=== PATIENT | female | born 1995 ===

== ENCOUNTER 2021-05-28 14:45 | Emergency (ER) | payer SELFPAY ==
--- NOTE | 2021-05-28 15:58 | Emergency Department Report ---
ED Female HPI - General Chief complaint: Vaginal Bleeding Stated complaint: VAGINAL BLEEDING Source: patient, family Mode of arrival: Ambulatory Limitations: Language Barrier - History of Present Illness Initial comments: 44 y/o female to the ED 3 para 2 complaining of vaginal bleeding. LMP :Mar. Patient stated that she noticed this morning light bright vaginal bleeding. Patient states that she is 8 weeks after taking a home test. She has an appointment on Sunday to see [facility] SUPPORT EXECUTIVE. Patient complained of abdominal cramping 8 out of 10. Denies any fatigue fever ,nausea .or vomiting. No acute distress noted .No ill appearance noted. MD Complaint: vaginal bleeding -: This morning Severity scale (0 -10): 8 Quality: cramping Consistency: intermittent Worsens with: none Are you Now?: Yes Last Menstrual Period: 03/29/21 EDC: 01/03/22 Associated Symptoms: vaginal bleeding, abdominal pain - Related Data Sexually active: Yes : 3 Para: 2 A: 0 Home Medications Medication Instructions Recorded Confirmed Last Taken No Known Home Medications [No 05/28/21 05/28/21 Unknown Reported Home Medications] Allergies Allergy/AdvReac Type Severity Reaction Status Date / Time No Known Allergies Allergy Verified 05/28/21 17:11 ED Review of Systems ROS: Stated complaint: VAGINAL BLEEDING Other details as noted in HPI ED Past Medical Hx - Medications Home Medications: Home Medications Medication Instructions Recorded Confirmed Last Taken Type No Known Home Medications [No 05/28/21 05/28/21 Unknown History Reported Home Medications] ED Physical Exam - General Limitations: Language Barrier ED Course Vital Signs 05/28/21 05/28/21 05/28/21 15:14 17:09 17:10 Temperature 98.0 F 98.9 F Pulse Rate 63 71 Respiratory 16 20 Rate Blood Pressure 115/77 Blood Pressure 117/69 [Right] O2 Sat by Pulse 100 99 99 Oximetry ED Medical Decision Making - Lab Data Result diagrams: 05/28/21 15:44 05/28/21 15:44 - Radiology Data Radiology results: image reviewed - Medical Decision Making 44 y/o female to the ED 3 para 2 complaining of vaginal bleeding. LMP :Mar. Patient stated that she noticed this morning light bright vaginal bleeding. Patient states that she is 8 weeks after taking a home test. She has an appointment on Sunday to see CUSTOMER SUPPORT EXECUTIVE. Patient comp lained of abdominal cramping 8 out of 10. Denies any fatigue fever ,nausea .or vomiting. No acute distress noted .No ill appearance noted Patient not patient measuring 5 weeks heart rate 91. Not correlating with patient estimated 8-week. Explained to patient the importance of follow-up appointment. hCG [place] [address]365. Patient to follow-up with C[facility] SUPPORT EXECUTIVE on Sunday (48 hour) to have hCG level redrawn. discussed plan of care with patient and verbalized understanding with group controller used . Discharge instruction given in [place]. - Differential Diagnosis Normal , ectopic , spontaneous miscarriage Critical care attestation.: If time is entered above; I have spent that time in minutes in the direct care of this critically ill patient, excluding procedure time. ED Disposition Clinical Impression: Vaginal bleeding affecting early Disposition: 01 HOME / SELF CARE / HOMELESS Is pt being admited?: No Does the pt Need Aspirin: No Condition: Stable Instructions: Vaginal Bleeding During , First Trimester Additional Instructions: Follow-up with my CUSTOMER SUPPORT EXECUTIVE on Sunday [phone] Explained you was seen in the ED on Sunday and was told to call on Sunday Return to ED for worsening symptoms or new symptoms. Keep appointment with prior CUSTOMER SUPPORT EXECUTIVE also Referrals: PRIMARY CARE, [Primary Care Provider] - 3-5 Days [facility] [Provider Group] - 3-5 Days Time of Disposition: 20:21 Print Language: [email or web address]
[2021-05-28 16:09] LABS: Basophils # (Auto) 0.1 K/mm3 (0.0-0.1); Basophils % (Auto) 0.7 % (0.0-1.8); Eosinophils % (Auto) 0.3 % (0.0-4.3); Hematocrit 43.1 % (30.3-42.9); Lymphocytes # (Auto) 1.8 K/mm3 (1.2-5.4); Lymphocytes % (Auto) 22.3 % (13.4-35.0); Mean Corpuscular HGB Conc 32 % (30-34); Mean Corpuscular Volume 86 fl (79-97); Monocytes # (Auto) 0.4 K/mm3 (0.0-0.8); Monocytes % (Auto) 5.2 % (0.0-7.3); Platelet Count 258 K/mm3 (140-440); Red Blood Count 5.03 M/mm3 (3.65-5.03); Red Cell Distribution Width 14.2 % (13.2-15.2)
[2021-05-28 16:29] LABS: Blood Urea Nitrogen 12 mg/dL (7-17); Calcium 9.5 mg/dL (8.4-10.2); Hemolysis Index 6
[2021-05-28 16:39] LABS: BUN/Creatinine Ratio 17
[2021-05-28 17:08] LABS: Bacteria,Urine 1+ /HPF (Negative); Bilirubin,Urine NEG (Negative); Blood,Urine LG (Negative); Color,Urine Yellow (Yellow); Mucus,Urine FEW /HPF; RBC,Urine > 182.0 /HPF (0.0-6.0); Urobilinogen,Urine < 2.0 mg/dL (<2.0)
[2021-05-28 17:10] VITALS: BP 117/69
--- NOTE | 2021-05-28 20:09 | Ultrasound Report ---
EXAMINATION: Obstetrical Ultrasound, 05/28/2021 INDICATION: Vaginal bleeding in early . COMPARISON: None FINDINGS: There is a single, living intrauterine . [place]-rump length = 0.2 cm = 5 weeks, 5 day(s). heart rate is 91 beats per minute. The bilateral adnexal regions appear within normal limits. There is no free pelvic fluid. IMPRESSION: 1. Single living intrauterine with estimated gestational age of 5 weeks, 5 days. Signer Name: Zahraa Acosta MD Signed: 05/28/2021 8:05 PM Workstation Name: [id number]
--- NOTE | 2021-05-28 20:09 | Ultrasound Report ---
EXAMINATION: Obstetrical Ultrasound, 05/28/2021 INDICATION: Vaginal bleeding in early . COMPARISON: None FINDINGS: There is a single, living intrauterine . [place]-rump length = 0.2 cm = 5 weeks, 5 day(s). heart rate is 91 beats per minute. The bilateral adnexal regions appear within normal limits. There is no free pelvic fluid. IMPRESSION: 1. Single living intrauterine with estimated gestational age of 5 weeks, 5 days. Signer Name: Zahraa Acosta MD Signed: 05/28/2021 8:05 PM Workstation Name: [id number]
== END 2021-05-28 20:20 | disposition home or self-care (01) ==
LOC: EDBD → ED 14:45
DX: O20.9 Hemorrhage in early pregnancy, unspecified (principal); Z3A.08 8 weeks gestation of pregnancy; Z79.899 Other long term (current) drug therapy
CPT/HCPCS: 36415; 76801; 76817; 76856; 80048; 81001; 84702; 85025; 86850; 86870; 86900; 86901; 99284